=== PATIENT | female | born 1985 | race Caucasian/White ===

== ENCOUNTER 2023-11-14 13:17 | Outpatient (AMB) | payer OTHER, SELFPAY ==
--- NOTE | 2023-11-14 13:17 | A.OFFPC_ITS ---
Vital Signs 11/14/23 13:18 Height 5 ft 2.4 in Weight 211 lb 0.8 oz BMI 38.1 BP 126/70 Blood Pressure Location Lt brachial Position Sitting Pulse 78 Pulse Source Pulse Oximeter Oxygen Delivery Method Room Air Intake Visit Reasons: New patient- Establish Care Adjunct Instructor Required: No Allergies latex [LATEX] Adverse Reaction (Unknown, Verified 11/14/23 13:18) RASH Latex Allergy (Unknown, Uncoded 11/14/23 13:18) rash shellfish Allergy (Unknown, Uncoded 11/14/23 13:18) rash Medication List - Last Reconciled 11/14/23 by Camille Felipe MD cyanocobalamin (vitamin B-12) 1,000 mcg PO DAILY magnesium hydroxide mg PO multivitamin 1 tab PO DAILY omega 0-ukt-lkk-fish oil 60-90-500 mg (Fish Oil) 1 cap PO DAILY zinc gluconate 50 mg PO DAILY Tobacco use date assessed: 11/14/23 Dental Screening Dental Screen Date: 11/14/23 Did you have a dental visit in the last 12 months?: Yes Did you have a dental problem in the last 6 months where you did not have access to dental care?: No Was dental information given to patient?: Patient has dentist HPI New patient- Establish Care HPI Details 37-year-old obese female 1st time being seen. R hand and arm pain- no fall ot trauma- 6 months. [facility] Surgical History (Updated 11/14/23 @ 13:23 by Camille Felipe MD) History of bilateral tubal ligation Family History (Updated 11/14/23 @ 13:36 by Camille Felipe MD) Other Colon cancer Myocardial infarct Social History (Updated 11/14/23 @ 13:37 by Camille Felipe MD) Housing: House Alcohol intake: current Comment: once a month 2 glasses Patient Tobacco Use Status: Never used Tobacco Years Smoked: pot service: No Current occupational status: employed Cognitive needs: No Hearing needs: No Vision needs: No Questionnaire PHQ-9 Over the last 2 weeks, how often have you been bothered by any of the following problems? 1. Little interest or pleasure in doing things: not at all 2. Feeling down, depressed, or hopeless: not at all 3. Trouble falling or staying asleep, or sleeping too much: not at all 4. Feeling tired or having little energy: not at all 5. Poor appetite or overeating: not at all 6. Feeling bad about yourself - or that you are a failure or have let yourself or your family down: not at all 7. Trouble concentrating on things, such as reading the newspaper or watching television: not at all 8. Moving or speaking so slowly that other people could have noticed. Or the opposite - being so fidgety or restless that you have been moving around a lot more than usual: not at all 9. Thoughts that you would be better off or of hurting yourself in some way: not at all Total score: 0 Depression Screening Interpretation: Negative Depression Screening Done: Yes Source: Developed by Drs. Yan Babin, Kina Mckeon, Alexx Joseph and colleagues, with an educational stella from [employer]. Thrive Questionnaire Date Thrive assessed: 11/14/23 I am a: Patient What is your living situation today?: I have a steady place to live Within the past 12 months, did the food you bought not last and you didn't have the money to get more?: Never true Within the past 12 months, did you worry whether your food would run out before you got money to buy more?: Never true Do you have trouble paying for medicines?: No Do you have trouble getting transportation to medical appointments?: No Do you have trouble paying your heating and electricity bill?: No Do you have trouble taking care of your child, family member or friend?: No Do you have trouble with day-to-day activities such as bathing, preparing meals, shopping, managing finances, etc.?: No Are you currently unemployed and looking for a job?: No Are you interested in more education?: No THRIVE Score: 0 AUDIT C Alcohol Use Questionnaire (AUDIT-C) 1. How often do you have a drink containing alcohol?: Never 3. How often do you have six or more drinks on one occasion?: Never Total Score: 0 IVORY-7 AMB Questionnaire IVORY-7 Date IVORY - 7 assessed: 11/14/23 Feeling nervous, anxious, or on edge: 1 = Several days Not being able to stop or control worryin = Several days Worrying too much about different things: 0 = Not at all Trouble relaxin = Not at all Being so restless that it is hard to sit still: 0 = Not at all Becoming easily annoyed or irritable: 0 = Not at all Feeling afraid as if something awful might happen: 0 = Not at all Total IVORY-7 score (0-4 normal; 5-9 mild; 10-14 moderate; 15-21 severe): 2 Source: Developed by Drs. Yan Babin, Kina Mckeon, Alexx Joseph and colleagues, with an educational stella from [employer]. Physical exam (Primary Care) Vital Signs: Last Vital Signs Pulse 78 11/14/23 13:18 BP 126/70 11/14/23 13:18 Oxygen Delivery Method Room Air 11/14/23 13:18 BMI result Body Mass Index 38.1 Tobacco/Smoking Status: Tobacco use Status Tobacco use date assessed 11/14/23 11/14/23 13:19 Patient Tobacco Use Status Never used Tobacco 11/14/23 13:37 PHQ-9: PHQ-9 Score PHQ-9: Total score 0 11/14/23 13:59 Depression Screening Interpretation: Negative Thrive Assessment: Date of Thrive Assessment Date Thrive assessed 11/14/23 11/14/23 13:19 Const General: alert; No acute distress Eyes Conjunctivae: conjunctivae normal Resp Auscultation: clear to auscultation bilaterally Cardio Rate: regular rate Rhythm: regular rhythm GI Inspection: Yes normal to inspection Extrem General: Yes normal to inspection and No edema Office Procedures Flu Questionnaire Does the patient have a severe egg allergy?: No Does the patient have severe life threatening allergies?: No Does the patient have a fever or illness today?: No Has the patient ever had Guillain-[place] Syndrome?: No Has the patient ever had any past reaction to a flu shot?: No Immunizations flu vacc [id number] 6mos up(PF) 60 mcg(15 mcgx4)/0.5 mL IM syringe Performing Provider: Camille Felipe MD [facility] Administered by: EMMA Barajas on 11/14/23 14:00 Dose Route Admin Location Dispensed Lot Number Expiration Date NDC Latex Spooler 0.5 mL IM Left Deltoid 0.5 mL [id number] 04/19/24 [id number] [employer] VIS Given Date VIS Provided VIS Publication Date 11/14/23 Single Vaccine 21 Eligibility Eligibility Date Funding Source Not [facility] Eligible 11/14/23 Private Assessment and Plan Assessment & Plan (1) Obesity (BMI 30-39.9): Code(s): E66.9 - Obesity, unspecified (2) GERD (gastroesophageal reflux disease): Code(s): K21.9 - Gastro-esophageal reflux disease without esophagitis (3) Cervical cancer screening: Code(s): Z12.4 - Encounter for screening for malignant neoplasm of cervix (4) Lateral epicondylitis (tennis elbow): Code(s): M77.10 - Lateral epicondylitis, unspecified elbow Plan: heat and exercises recommended Orders: Orders Complete Blood Count Auto Diff Today K21.9 - Gastro-esophageal reflux disease without esophagitis Comprehensive Met. Panel Today K21.9 - Gastro-esophageal reflux disease without esophagitis Vitamin D 25-OH Total Today K21.9 - Gastro-esophageal reflux disease without esophagitis Influenza [id number] Immunization Today Z23 - Encounter for immunization Free T4 (Free Thyroxine) Today K21.9 - Gastro-esophageal reflux disease without esophagitis Thyroid Stimulating Hormone Today K21.9 - Gastro-esophageal reflux disease without esophagitis Lipid Panel Today E78.00 - Pure hypercholesterolemia, unspecified, K21.9 - Gastro-esophageal reflux disease without esophagitis Vitamin B12 and Folate Today K21.9 - Gastro-esophageal reflux disease without esophagitis Magnesium Today K21.9 - Gastro-esophageal reflux disease without esophagitis Referrals [facility] Referral Z12.4 - Encounter for screening for malignant neoplasm of cervix Medications: New semaglutide (Ozempic) for 4 weeks 0.25 mg (0.368 mL) subcut QWEEK 4 weeks 3 mL 1RF E66.9 - Obesity, unspecified Coding Level of Care Code New Pt Level 4 (58944) Diagnoses Obesity (BMI 30-39.9) E66.9 GERD (gastroesophageal reflux disease) K21.9 Cervical cancer screening Z12.4 Lateral epicondylitis (tennis elbow) M77.10
[2023-11-14 13:18] VITALS: BP 126/70; PULSE 78; BMI 38.1
== END 2023-11-14 14:06 | disposition home or self-care (01) ==
PROVIDERS: PCP Internal Medicine; Visit Provider Internal Medicine
DX: Z23 Encounter for immunization (principal); K21.9 Gastro-esophageal reflux disease without esophagitis; E66.9 Obesity, unspecified; Z68.38 Body mass index [BMI] 38.0-38.9, adult; M77.11 Lateral epicondylitis, right elbow
CPT/HCPCS: 90471; 90686; 99204

== ENCOUNTER 2024-09-02 15:25 | Outpatient (AMB) | payer OTHER, SELFPAY ==
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
[2024-09-02 15:45] VITALS: BP 130/72; PULSE 80; O2SAT 97; BMI 37.9
== END 2024-09-02 16:11 | disposition home or self-care (01) ==
PROVIDERS: PCP Internal Medicine; Visit Provider Internal Medicine
DX: S93.402A Sprain of unspecified ligament of left ankle, initial encounter (principal)

== ENCOUNTER → 2024-09-02 15:25 | Outpatient (BNVA) | payer OTHER, SELFPAY | PROVIDERS: PCP Internal Medicine; Visit Provider Internal Medicine ==

== ENCOUNTER 2024-09-02 16:17 | Outpatient (REF) | payer OTHER, SELFPAY | END 2024-09-02 16:18 | disposition home or self-care (01) | LOC: HO.XRAY 16:17 | PROVIDERS: PCP Internal Medicine; Visit Provider Internal Medicine | DX: S93.402A Sprain of unspecified ligament of left ankle, initial encounter (principal) | CPT/HCPCS: 73610 ==

== ENCOUNTER 2024-12-28 16:49 | Outpatient (AMB) | payer OTHER, SELFPAY ==
[2024-12-28 16:50] VITALS: BP 122/80; BMI 38.3
--- NOTE | 2024-12-28 16:50 | A.OFFPC_ITS ---
Vital Signs 12/28/24 16:50 Height 5 ft 2.4 in Weight 212 lb BMI 38.3 BP 122/80 Blood Pressure Location Lt brachial Position Sitting Intake Visit Reasons: Allergic reaction Manager Wireless Required: No Accompanied by: Self / Same As Patient Allergies latex [LATEX] Adverse Reaction (Unknown, Verified 12/28/24 16:52) RASH Latex Allergy (Unknown, Uncoded 09/02/24 16:47) rash shellfish Allergy (Unknown, Uncoded 09/02/24 16:47) rash Medication List - Last Reconciled 12/28/24 by Camille Felipe MD cyanocobalamin (vitamin B-12) 1,000 mcg PO DAILY magnesium hydroxide mg PO zinc gluconate 50 mg PO DAILY Tobacco use date assessed: 12/28/24 Dental Screening Dental Screen Date: 12/28/24 Did you have a dental visit in the last 12 months?: No Did you have a dental problem in the last 6 months where you did not have access to dental care?: No Was dental information given to patient?: Patient has dentist [facility] Surgical History History of bilateral tubal ligation Family History Other Colon cancer Myocardial infarct Social History Housing: House Alcohol intake: current Comment: once a month 2 glasses Patient Tobacco Use Status: Never used Tobacco Years Smoked: pot e-Cigarette/Vaping Use: Never Used Second Hand Smoke Exposure: No service: No Current occupational status: employed Current occupational exposures/hazards: No Cognitive needs: No Hearing needs: No Vision needs: No Questionnaire PHQ-9 Over the last 2 weeks, how often have you been bothered by any of the following problems? 1. Little interest or pleasure in doing things: not at all 2. Feeling down, depressed, or hopeless: not at all 3. Trouble falling or staying asleep, or sleeping too much: several days 4. Feeling tired or having little energy: not at all 5. Poor appetite or overeating: not at all 6. Feeling bad about yourself - or that you are a failure or have let yourself or your family down: not at all 7. Trouble concentrating on things, such as reading the newspaper or watching television: not at all 8. Moving or speaking so slowly that other people could have noticed. Or the opposite - being so fidgety or restless that you have been moving around a lot more than usual: nearly every day 9. Thoughts that you would be better off or of hurting yourself in some way: not at all Total score: 4 Source: Developed by Drs. Yan Babin, Kina Mckeon, Alexx Joseph and colleagues, with an educational stella from [employer]. Thrive Questionnaire Date Thrive assessed: 12/28/24 I am a: Patient What is your living situation today?: I have a steady place to live Within the past 12 months, did the food you bought not last and you didn't have the money to get more?: Never true Within the past 12 months, did you worry whether your food would run out before you got money to buy more?: Never true Do you have trouble paying for medicines?: No Do you have trouble getting transportation to medical appointments?: No Do you have trouble paying your heating and electricity bill?: No Do you have trouble taking care of your child, family member or friend?: No Do you have trouble with day-to-day activities such as bathing, preparing meals, shopping, managing finances, etc.?: No Are you currently unemployed and looking for a job?: No Are you interested in more education?: No Please select the resources that you would like help with: None Currently or been in a relationship where the following occur: No concerns reported THRIVE Score: 0 AUDIT C Alcohol Use Questionnaire (AUDIT-C) 1. How often do you have a drink containing alcohol?: Never Total Score: 0 IVORY-7 AMB Questionnaire IVORY-7 Date IVORY - 7 assessed: 12/28/24 Feeling nervous, anxious, or on edge: 3 = Nearly every day Not being able to stop or control worryin = Not at all Worrying too much about different things: 2 = More than half the days Trouble relaxin = More than half the days Being so restless that it is hard to sit still: 1 = Several days Becoming easily annoyed or irritable: 0 = Not at all Feeling afraid as if something awful might happen: 0 = Not at all Total IVORY-7 score (0-4 normal; 5-9 mild; 10-14 moderate; 15-21 severe): 8 Source: Developed by Drs. Yan Babin, Kina Mckeon, Alexx Joseph and colleagues, with an educational stella from [employer]. Physical exam (Primary Care) Vital Signs: Last Vital Signs BP 122/80 12/28/24 16:50 BMI result Body Mass Index 38.3 Tobacco/Smoking Status: Tobacco use Status Tobacco use date assessed 12/28/24 12/28/24 16:56 Patient Tobacco Use Status Never used Tobacco 12/28/24 16:56 e-Cigarette/Vaping Use Never Used 12/28/24 16:56 PHQ-9: PHQ-9 Score PHQ-9: Total score 4 12/28/24 17:04 Thrive Assessment: Date of Thrive Assessment Date Thrive assessed 12/28/24 12/28/24 16:56 Currently or been in a relationship where the following occur: No concerns reported Const General: alert; No acute distress Eyes Conjunctivae: conjunctivae normal Resp Auscultation: clear to auscultation bilaterally Cardio Rate: regular rate Rhythm: regular rhythm GI Inspection: Yes normal to inspection Extrem General: Yes normal to inspection and No edema Coding Level of Care Code Est Pt Level 4 (90876) Diagnoses Obesity (BMI 30-39.9) E66.9 GERD (gastroesophageal reflux disease) K21.9 Lateral epicondylitis (tennis elbow) M77.10 Pruritus L29.9 Assessment & Plan Assessment & Plan (1) Obesity (BMI 30-39.9): Code(s): E66.9 - Obesity, unspecified Category: Medical Plan: Diet and exercise (2) GERD (gastroesophageal reflux disease): Code(s): K21.9 - Gastro-esophageal reflux disease without esophagitis Category: Medical Plan: Avoid the foods that causes that usually spicy foods, tomato products, juices, coffee, soda and foods that your sensitive to. After eating do not lie down, allow 3-4 hours before in lie down. And keep the head of bed above 30 degrees to avoid the acid from going up. (3) Lateral epicondylitis (tennis elbow): Code(s): M77.10 - Lateral epicondylitis, unspecified elbow Category: Medical Plan: resolvied (4) Pruritus: Code(s): L29.9 - Pruritus, unspecified Category: Medical Plan History of Present Illness The patient is a 39-year-old female presenting with persistent pruritus. She describes the itchiness as chronic and generalized, having started approximately one month prior, with no accompanying rash. The patient has tried various methods for relief, including specific shampoos and skincare products, colder showers, and dietary adjustments, without significant improvement. The intensity of itching has led to mental distress and breakdowns. Additionally, she reports pruritus exacerbating during nighttime, impacting her sleep. The patient has a history of obesity influencing her joint health, notably causing discomfort in her ankles, related to an inferior calcaneal spur with associated osteoarthritis. Past management strategies included diet modifications, although insurance challenges have affected her access to specific weight-loss medications such as Ozempic. 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 Health Maintenance - Dietary management: cessation of meat and alcohol consumption. - Reflux management plan with dietary measures. - Current medications include [id number] supplements: B12, magnesium, and zinc. - Recommended non-sedative antihistamines: Claritin or Arlyn. - Allergy medication: hydroxyzine for nighttime itch relief. Social History - Employment: Operates a daycare. - Weight management: Actively pursuing through dietary changes and cessation of alcohol. - Self-care adjustments: Reduces use of fragranced products. Review of Systems - General: Reports persistent itching without rash. - Respiratory: Denies recent/upcoming respiratory issues explicitly but mentions wearing masks due to exposure risk (COVID, flu). Physical Exam Results - Previous lab results include normal electrolytes, kidney function, blood sugar, and liver function. - Hepatitis C antibody nonreactive, varicella antibody positive, hepatitis B negative, measles antibody positive. - X-ray of left ankle indicated an inferior calcaneal spur with no fracture. Plan The pruritus will be managed with non-sedative antihistamines, considering Sung gra as preferable for efficacy, while hydroxyzine can be used at night. Continued monitoring and coordination for obtaining Wegovy for obesity and weight-related symptoms is crucial. Lifestyle modifications including dietary changes will support GERD and lateral epicondylitis management. An emphasis was placed on weight management for osteoarthritis relief through supportive footwear. Ongoing allergy management strategies were advised to further control pruritus without work interference. Patient was informed and verbally consented to the use of an ambient scribe for clinic note documentation during this visit. Discussion Notes I reviewed the patient's symptoms thoroughly and explained that pruritus management could include both daytime non-sedative antihistamines and nighttime hydroxyzine to alleviate symptoms. The importance of weight management was discussed in the context of osteoarthritis and its impact on joint health; treatment with Wegovy is being pursued pending insurance approval. I advised lifestyle modifications, including continued dietary changes for weight loss and GERD support, as well as rest, ice, compression, and elevation (R.I.C.E.) methods to alleviate symptoms from lateral epicondylitis. We also discussed preventative health measures for her work environment, especially with the risk of respiratory infections, reiterating the importance of personal protective equipment in such settings. I confirmed awareness of additional allergy medication options and plans for allergy testing if symptoms persist. Patient Instructions - Take non-sedative antihistamines such as Arlyn or Claritin daily and hydroxyzine at night for itch relief. - Continue dietary changes and cessation of alcohol to assist with weight management and GERD. - Wear supportive footwear to alleviate stress on joints. - Follow up with a referral to seek approval for Wegovy for weight management. - Utilize protective measures against COVID-19 and other respiratory infections, such as wearing a mask in indoor settings. - Contact me if symptoms worsen or if there are issues with medications or side effects. Orders: Orders Complete Blood Count Auto Diff Today L29.9 - Pruritus, unspecified Thyroid Stimulating Hormone Today L29.9 - Pruritus, unspecified UA CC w/rflx Micro + Cult Today L29.9 - Pruritus, unspecified, R30.0 - Dysuria Lipid Panel Today E78.00 - Pure hypercholesterolemia, unspecified, L29.9 - Pruritus, unspecified Comprehensive Met. Panel Today L29.9 - Pruritus, unspecified Free T4 (Free Thyroxine) Today L29.9 - Pruritus, unspecified Vitamin B12 and Folate Today L29.9 - Pruritus, unspecified Hemoglobin A1c Today L29.9 - Pruritus, unspecified Vitamin D 25-OH Total Today L29.9 - Pruritus, unspecified Referrals Allergy & Immunology Referral L29.9 - Pruritus, unspecified Medications: New hydroxyzine HCl 25 mg PO TID PRN 60 tabs 0RF itching L29.9 - Pruritus, unspecified semaglutide (weight loss) (Max) administer weeks 1 through 4 of therapy 0.25 mg (0.5 mL) subcut QWEEK 2 mL 1RF E66.9 - Obesity, unspecified
== END 2024-12-28 17:19 | disposition home or self-care (01) ==
PROVIDERS: PCP Internal Medicine; Visit Provider Internal Medicine
DX: K21.9 Gastro-esophageal reflux disease without esophagitis (principal); M77.10 Lateral epicondylitis, unspecified elbow; E66.9 Obesity, unspecified; Z68.38 Body mass index [BMI] 38.0-38.9, adult; L29.9 Pruritus, unspecified

== ENCOUNTER 2025-02-19 14:53 | Outpatient (AMB) | payer OTHER, SELFPAY ==
--- NOTE | 2025-02-19 15:02 | MHC.PC.OV ---
Vital Signs 02/19/25 15:04 Height 5 ft 2.4 in Weight 215 lb 2 oz BMI 38.8 BP 130/72 Blood Pressure Location Lt brachial Position Sitting Pulse 86 Pulse Source Pulse Oximeter Temp 97.5 F Temp Source Temporal Artery Scan Pulse Oximetry (%) 96 Oxygen Delivery Method Room Air Intake Visit Reasons: bump between R breast and shoulder Intake Note: Patient is here to follow up on Bump between right breast and shoulder. Cylinder Head Assembler Required: No Mold Presser: Not Required per policy Accompanied by: Self / Same As Patient Allergies latex [LATEX] Adverse Reaction (Unknown, Verified 02/19/25 15:03) RASH shellfish Allergy (Unknown, Uncoded 02/19/25 15:03) rash Medication List - Last Reconciled 02/19/25 by Camille Felipe MD cephalexin 500 mg PO BID 7 days cyanocobalamin (vitamin B-12) 1,000 mcg PO DAILY hydroxyzine HCl 25 mg PO TID PRN magnesium hydroxide mg PO semaglutide (weight loss) (Wegovy) 0.25 mg (0.5 mL) subcut QWEEK zinc gluconate 50 mg PO DAILY Tobacco use date assessed: 02/19/25 Dental Screening Dental Screen Date: 12/28/24 [facility] Surgical History History of bilateral tubal ligation Family History Other Colon cancer Myocardial infarct Social History Housing: House Alcohol intake: current Comment: once a month 2 glasses Patient Tobacco Use Status: Never used Tobacco Years Smoked: pot e-Cigarette/Vaping Use: Never Used Second Hand Smoke Exposure: No service: No Current occupational status: employed Current occupational exposures/hazards: No Cognitive needs: No Hearing needs: No Vision needs: No Questionnaire PHQ-9 Over the last 2 weeks, how often have you been bothered by any of the following problems? 1. Little interest or pleasure in doing things: not at all 2. Feeling down, depressed, or hopeless: not at all 3. Trouble falling or staying asleep, or sleeping too much: several days 4. Feeling tired or having little energy: nearly every day 5. Poor appetite or overeating: several days 6. Feeling bad about yourself - or that you are a failure or have let yourself or your family down: not at all 7. Trouble concentrating on things, such as reading the newspaper or watching television: more than half the days 8. Moving or speaking so slowly that other people could have noticed. Or the opposite - being so fidgety or restless that you have been moving around a lot more than usual: several days 9. Thoughts that you would be better off or of hurting yourself in some way: not at all Total score: 8 Depression Screening Interpretation: Positive Depression Screening Done: Yes Source: Developed by Drs. Yan Babin, Knia Mckeon, Alexx Joseph and colleagues, with an educational stella from [employer]. Thrive Questionnaire Date Thrive assessed: 12/28/24 I am a: Patient What is your living situation today?: I have a steady place to live Within the past 12 months, did the food you bought not last and you didn't have the money to get more?: Never true Within the past 12 months, did you worry whether your food would run out before you got money to buy more?: Never true Do you have trouble paying for medicines?: No Do you have trouble getting transportation to medical appointments?: No Do you have trouble paying your heating and electricity bill?: No Do you have trouble taking care of your child, family member or friend?: No Do you have trouble with day-to-day activities such as bathing, preparing meals, shopping, managing finances, etc.?: No Are you currently unemployed and looking for a job?: No Are you interested in more education?: No Please select the resources that you would like help with: None Currently or been in a relationship where the following occur: No concerns reported THRIVE Score: 0 AUDIT C Alcohol Use Questionnaire (AUDIT-C) 1. How often do you have a drink containing alcohol?: Monthly or less 2. How many drinks containing alcohol do you have on a typical day when you are drinking?: 1 or 2 3. How often do you have six or more drinks on one occasion?: Never Total Score: 1 IVORY-7 AMB Questionnaire IVORY-7 Date IVORY - 7 assessed: 12/28/24 Feeling nervous, anxious, or on edge: 1 = Several days Not being able to stop or control worryin = Not at all Worrying too much about different things: 1 = Several days Trouble relaxin = Several days Being so restless that it is hard to sit still: 1 = Several days Becoming easily annoyed or irritable: 0 = Not at all Feeling afraid as if something awful might happen: 0 = Not at all Total IVORY-7 score (0-4 normal; 5-9 mild; 10-14 moderate; 15-21 severe): 4 Source: Developed by Drs. Yan Babin, Kina Mckeon, Alexx Joseph and colleagues, with an educational stella from [employer]. Physical exam (Primary Care) Vital Signs: Last Vital Signs Temp 97.5 F 02/19/25 15:04 Pulse 86 02/19/25 15:04 BP 130/72 02/19/25 15:04 Pulse Ox 96 02/19/25 15:04 Oxygen Delivery Method Room Air 02/19/25 15:04 BMI result Body Mass Index 38.8 Tobacco/Smoking Status: Tobacco use Status Tobacco use date assessed 12/28/24 02/19/25 15:04 Patient Tobacco Use Status Never used Tobacco 02/19/25 15:04 e-Cigarette/Vaping Use Never Used 02/19/25 15:04 PHQ-9: PHQ-9 Score PHQ-9: Total score 8 02/19/25 15:38 Depression Screening Interpretation: Positive Thrive Assessment: Date of Thrive Assessment Date Thrive assessed 12/28/24 02/19/25 15:04 Currently or been in a relationship where the following occur: No concerns reported Const General: alert; No acute distress Eyes Conjunctivae: conjunctivae normal Neck Neck images: 1. 2 cm round mass R shoulder erythematous and tender Resp Auscultation: clear to auscultation bilaterally Cardio Rate: regular rate Rhythm: regular rhythm GI Inspection: Yes normal to inspection Extrem General: Yes normal to inspection and No edema Coding Level of Care Code Est Pt Level 4 (07305) Diagnoses Pruritus L29.9 Obesity (BMI 30-39.9) E66.9 GERD (gastroesophageal reflux disease) K21.9 Infected cyst of skin L72.9; L08.9 Assessment & Plan Assessment & Plan (1) Pruritus: Code(s): L29.9 - Pruritus, unspecified Category: Medical Plan: Patient has seen Allergy and immunology and Xyzal, and workup was recommended. Patient has not had a chest x-ray. (2) Obesity (BMI 30-39.9): Code(s): E66.9 - Obesity, unspecified Category: Medical Plan: Diet and exercise. Wegovy prescription sent in to see if insurance would cover. (3) GERD (gastroesophageal reflux disease): Code(s): K21.9 - Gastro-esophageal reflux disease without esophagitis Category: Medical Plan: Avoid the foods that causes that usually spicy foods, tomato products, juices, coffee, soda and foods that your sensitive to. After eating do not lie down, allow 3-4 hours before in lie down. And keep the head of bed above 30 degrees to avoid the acid from going up. (4) Infected cyst of skin: Comment: R shoulder Code(s): L72.9 - Follicular cyst of the skin and subcutaneous tissue, unspecified; L08.9 - Local infection of the skin and subcutaneous tissue, unspecified Category: Medical Plan History of Present Illness The patient is a 39-year-old female presenting with an infected epidermal cyst. Initially noted to be a benign swelling, the lesion gradually increased in size and became painful. It is described as red, painful, and warm to touch, indicating infection. The patient has not observed any direct cause for the cyst?s irritation. The patient reports a history of seeing an clerical production worker for pruritus, using Cizal and Arlyn, with previous hydroxyzine being discontinued in favor of topical treatments alongside proton pump inhibitors for GERD management. The onset of the infection was recent, with palpable tenderness and ache during the examination. Health Maintenance - Adherence to proton pump inhibitors for GERD management. - Attempted weight management through prescribed medications, with insurance-related obstacles. Social History - Mention of challenges with health insurance coverage impacting prescription access. - The patient references weight management as an ongoing concern. Review of Systems - Dermatological: Reports painful, red, warm lump indicative of an infected cyst. - Respiratory: Reports a persistent cough and raspy voice for several months. - Allergic/Immunological: Reports pruritus, seen by an clerical production worker and treated with Cizal and Arlyn. Physical Exam - Skin- Presence of an infected epidermal cyst, described as red, warm, and tender. Results - Labs: Patient underwent blood work; results not discussed. - Imaging: Pending chest X-ray due to a persistent cough and raspy voice. Plan The infected epidermal cyst requires antibiotic treatment, for which cefalexin has been prescribed due to the patient's intolerance to amoxicillin. If the infection does not resolve, surgical removal might be considered. Continued use of moisturizers and steroid creams is advised for managing pruritus. GERD will continue to be managed with proton pump inhibitors. The patient is encouraged to pursue weight management strategies, including exploring possible medications through insurance adjustments. Patient was informed and verbally consented to the use of an ambient scribe for clinic note documentation during this visit. Discussion Notes I discussed with the patient the nature and possible causes of the infected cyst and highlighted the infection risks if left untreated. I recommended cefalexin, considering the patient's allergic reactions to other antibiotics, and warned of potential risks including secondary yeast infections. Follow-up is predicated on symptom improvement or persistence of infection, with surgical intervention as a possibility. We reviewed the ongoing management of pruritus and GERD. Addressed were attempts to overcome insurance barriers to appropriate weight management medication, emphasizing the importance of weight loss in managing GERD and overall health. Ensured understanding of referral for imaging and pharmacy details for prescriptions. Patient Instructions - Take cefalexin as prescribed and complete the full course. - Use topical moisturizers and steroid creams for skin pruritus as needed. - Continue proton pump inhibitors for GERD management. - Monitor the cyst for signs of improvement or worsening; return if no improvement. - Pursue imaging for a chronic cough and raspy voice. - Address weight management with medication pending insurance approval. - Return in three weeks if there is no progress with the current weight management plan. Orders: Orders XR chest 2V Today L29.9 - Pruritus, unspecified Medications: New cephalexin 500 mg PO BID 14 tabs 0RF 7 days L08.9 - Local infection of the skin and subcutaneous tissue, unspecified, L72.9 - Follicular cyst of the skin and subcutaneous tissue, unspecified semaglutide (weight loss) (Max) administer weeks 1 through 4 of therapy 0.25 mg (0.5 mL) subcut QWEEK 2 mL 1RF E66.9 - Obesity, unspecified
[2025-02-19 15:04] VITALS: BP 130/72; PULSE 86; TEMP 36.4; O2SAT 96; BMI 38.8
== END 2025-02-19 15:55 | disposition home or self-care (01) ==
LOC: HO.HMCH 14:54
PROVIDERS: PCP Internal Medicine; Visit Provider Internal Medicine
DX: L29.9 Pruritus, unspecified (principal); E66.9 Obesity, unspecified; Z68.38 Body mass index [BMI] 38.0-38.9, adult; K21.9 Gastro-esophageal reflux disease without esophagitis; L72.9 Follicular cyst of the skin and subcutaneous tissue, unspecified; L08.9 Local infection of the skin and subcutaneous tissue, unspecified

== ENCOUNTER → 2025-02-19 14:53 | Outpatient (BNVA) | payer OTHER, SELFPAY | PROVIDERS: PCP Internal Medicine; Visit Provider Internal Medicine | DX: Z13.89 Encounter for screening for other disorder (principal) ==

== ENCOUNTER 2025-03-05 15:51 | Outpatient (AMB) | payer OTHER, SELFPAY ==
--- NOTE | 2025-03-05 15:51 | MHC.PC.OV ---
Vital Signs 03/05/25 15:52 Height 5 ft 2.4 in Weight 214 lb 2 oz BMI 38.7 BP 140/74 H Blood Pressure Location Lt brachial Position Sitting Pulse 87 Pulse Source Pulse Oximeter Temp 97.3 F Temp Source Temporal Artery Scan Pulse Oximetry (%) 97 Oxygen Delivery Method Room Air Intake Visit Reasons: Right shoulder infected cyst Intake Note: Patient is here to follow up on Right shoulder infection . Emerging Solutions Executive Required: No Dramatic Arts Historian: Present Accompanied by: Children Allergies latex [LATEX] Adverse Reaction (Unknown, Verified 03/05/25 15:52) RASH shellfish Allergy (Unknown, Uncoded 03/05/25 15:52) rash Medication List - Last Reconciled 03/05/25 by Annalee Coleman PA-C cyanocobalamin (vitamin B-12) 1,000 mcg PO DAILY hydroxyzine HCl 25 mg PO TID PRN magnesium hydroxide mg PO semaglutide (weight loss) (Wegovy) 0.25 mg (0.5 mL) subcut QWEEK zinc gluconate 50 mg PO DAILY Tobacco use date assessed: 03/05/25 Dental Screening Dental Screen Date: 12/28/24 HPI Right shoulder infected cyst HPI Details 39-year-old female with past medical history of obesity and GERD last seen 02/[address] Felipe coming in for acute problem. Presenting with shoulder pain and cyst under the arm. Reports developing recurring cysts under the arm, with a total of five accumulating previously. No surgical interventions have been required historically. Patient continues to have painful cyst on the anterior aspect of the right shoulder did complete course of Keflex with significant improvement. She does still continue to have tenderness and redness. COUNT INCLUDES [facility] Surgical History History of bilateral tubal ligation Family History Other Colon cancer Myocardial infarct Social History Housing: House Alcohol intake: current Comment: once a month 2 glasses Patient Tobacco Use Status: Never used Tobacco Years Smoked: pot e-Cigarette/Vaping Use: Never Used Second Hand Smoke Exposure: No service: No Current occupational status: employed Current occupational exposures/hazards: No Cognitive needs: No Hearing needs: No Vision needs: No Questionnaire Thrive Questionnaire Date Thrive assessed: 12/28/24 IVORY-7 AMB Questionnaire IVORY-7 Date IVORY - 7 assessed: 12/28/24 Source: Developed by Drs. Yan Babin, Kina Mckeon, Alexx Joseph and colleagues, with an educational stella from [employer]. Review of Systems Const Denies body aches, Denies chills and Denies fever(s) Eyes Reports no additional complaints ENT Reports no additional complaints Card Denies chest pain and Denies dyspnea Resp Denies dyspnea Musc Reports as per HPI Skin/Breast Reports system reviewed and no additional complaints, except as documented Physical exam (Primary Care) Tobacco/Smoking Status: Tobacco use Status Tobacco use date assessed 12/28/24 02/19/25 15:04 Patient Tobacco Use Status Never used Tobacco 02/19/25 15:04 e-Cigarette/Vaping Use Never Used 02/19/25 15:04 Thrive Assessment: Date of Thrive Assessment Date Thrive assessed 02/19/25 03/05/25 15:51 Const General: cooperative, healthy appearing, comfortable and no acute distress Orientation/consciousness: patient oriented x3 Eyes General: appearance normal, both eyes and all related structures Conjunctivae: conjunctivae normal Neck Neck: Yes full ROM and Yes no lymphadenopathy Resp Effort & Inspection: normal respiratory effort Auscultation: clear to auscultation bilaterally, no crackles, no rales, no rhonchi and no wheezes Cardio Rate: regular rate Rhythm: regular rhythm GI Abdomen image: 1. Soft tender mass with surrounding erythema Skin General skin exam: no rashes or lesions noted Neuro General: patient oriented x3 Gait exam (Neuro): Normal gait present Psych Affect: normal affect Attitude: cooperative Insight: Good insight present (Psych) Judgement: Good judgement present (Psych) Coding Level of Care Code Est Pt Level 3 (87527) Diagnoses Infected cyst of skin L72.9; L08.9 Assessment & Plan Assessment & Plan (1) Infected cyst of skin: Comment: R shoulder Code(s): L72.9 - Follicular cyst of the skin and subcutaneous tissue, unspecified; L08.9 - Local infection of the skin and subcutaneous tissue, unspecified Category: Medical Plan: Patient continues to have infected cyst of the right shoulder. I propose an antibiotic course to address the ongoing inflammation of the right shoulder consistent with infection. The necessity of surgery is to be evaluated post-treatment response, potentially requiring general surgical consultation for the cyst. Preemptive lifestyle modifications, such as avoiding irritants and wearing protective clothing when exposed to sunlight, were emphasized. Suggested adjunctive probiotic management to preserve gut microbiota integrity during antibiotic therapy, emphasizing consumption with meals to lessen digestive disturbances. Pending resolution, further systemic monitoring via blood tests might be requested. Plan This note was constructed using voice recognition software. While every effort has been made to ensure accuracy and sign language instructor, still areas may have been included sometimes these areas may affect the content or meeting of the given symptoms. Total time spent caring for the patient today was 20 minutes. This includes time spent before the visit reviewing the chart, time spent during the visit, and time spent after the visit and documentation. Patient was informed and verbally consented to the use of an ambient scribe for clinic note documentation during this visit. Orders: Referrals General Surgery Referral L08.9 - Local infection of the skin and subcutaneous tissue, unspecified, L72.9 - Follicular cyst of the skin and subcutaneous tissue, unspecified Medications: New doxycycline hyclate 100 mg PO BID 14 tabs 0RF
[2025-03-05 15:52] VITALS: BP 140/74; PULSE 87; TEMP 36.3; O2SAT 97; BMI 38.7
== END 2025-03-05 16:12 | disposition home or self-care (01) ==
PROVIDERS: PCP Internal Medicine
DX: L72.9 Follicular cyst of the skin and subcutaneous tissue, unspecified (principal); L08.9 Local infection of the skin and subcutaneous tissue, unspecified

== ENCOUNTER → 2025-03-05 15:51 | Outpatient (BNVA) | payer OTHER, SELFPAY | PROVIDERS: PCP Internal Medicine ==

== ENCOUNTER 2025-03-19 16:08 | Outpatient (AMB) | payer OTHER, SELFPAY ==
[2025-03-19 16:12] VITALS: BP 118/72; PULSE 95; TEMP 36.7; O2SAT 98; BMI 39.2
--- NOTE | 2025-03-19 16:12 | AM.OFFWIN_ITS ---
Intake Vital Signs 03/19/25 16:12 Height 5 ft 2.4 in Weight 217 lb 2 oz BMI 39.2 BP 118/72 Blood Pressure Location Lt brachial Position Sitting Pulse 95 Pulse Source Pulse Oximeter Temp 98.1 F Temp Source Oral Pulse Oximetry (%) 98 Oxygen Delivery Method Room Air Intake Visit Reasons: EP heart fluttering/squeezed, rt neck/lt arm pain Intake Note: Pt presents to the office today for tight chest symptoms and right sided neck and arm pain that radiated to her left side. Patient Tobacco Use Status: Never used Tobacco Allergies latex [LATEX] Adverse Reaction (Unknown, Verified 03/19/25 16:15) RASH shellfish Allergy (Unknown, Uncoded 03/19/25 16:15) rash HPI HPI Comments History of Present Illness Details History of Present Illness - The patient is a 39-year-old female pr esenting with acute chest pain experienced at 4:00 AM, initially right-sided, radiating to the shoulder, arm, and neck, then moving to the left side of her chest and then radiating to her shoulder arm and neck. - Associated symptoms included nausea, w ith no vomiting - she denies any episodes of sweating, d izziness or lightheadedness. - Relief was achieved after taking two 8 1mg aspirin, with a reduction in chest pressure and pain allowing her to sleep. - No vomiting, or pain radiating to the stomach or back was noted. - No significant personal or family hist ory of cardiac issues was reported, aside from the mother experiencing heart palpitations. Physical Exam General: Cooperative, healthy appearing, comfortable, no acute distress and well developed Orientation: Patient oriented x3 Limitations: No limitations Head: Normal to inspection Ears: Hearing grossly normal bilaterally Nose: Normal External nose present Face and sinus: Normal facial exam Eyes: Appearance normal, both eyes and all related structures Neck: Normal visual inspection and Yes full ROM Respiratory: Normal respiratory effort and able to speak in complete sentences. Clear to auscultation bilaterally Cardiovascular: Regular rate and rhythm. Normal S1 and S2 Skin: No rashes or lesions noted Neuro: Patient oriented x3 Extremities: Normal to inspection [facility] Surgical History History of bilateral tubal ligation Family History Other Colon cancer Myocardial infarct Social History Housing: House Alcohol intake: current Comment: once a month 2 glasses Patient Tobacco Use Status: Never used Tobacco Years Smoked: pot e-Cigarette/Vaping Use: Never Used Second Hand Smoke Exposure: No service: No Current occupational status: employed Current occupational exposures/hazards: No Cognitive needs: No Hearing needs: No Vision needs: No Review of Systems Const All systems reviewed & are unremarkable except as noted in HPI and below Physical Exam Vital Signs: Last Vital Signs Temp 98.1 F 03/19/25 16:12 Pulse 95 03/19/25 16:12 BP 118/72 03/19/25 16:12 Pulse Ox 98 03/19/25 16:12 Oxygen Delivery Method Room Air 03/19/25 16:12 BMI result Body Mass Index 39.2 Assessment & Plan Assessment & Plan (1) Chest pain: Code(s): R07.9 - Chest pain, unspecified Qualifiers: Chest pain type: unspecified Qualified Code(s): R07.9 - Chest pain, unspecified Plan: An electrocardiogram (EKG) was performed to assess the patient's cardiac function due to the previous chest pain episode. It was clarified that while the current presentation did not warrant emergency referral, she should seek immediate medical attention if symptoms reoccur. The potential for baseline abnormalities in the EKG without previous data for comparison was acknowledged. The patient was advised of the importance of vigilance for any future symptom recurrence and to obtain care expeditiously if needed. EKG shows normal sinus rhythm at 79 beats per minute, no acute changes noted. Recommended patient monitor herself for symptoms and should her chest pain return, it is imperative that she either call 911 or have someone drive her to the closest emergency department to have cardiac issues ruled out. As she is currently not symptomatic her vital signs are stable and she is well-appearing with a normal EKG, there is no indication for emergency evaluation right now. Patient was informed and verbally consented to the use of an ambient scribe for clinic note documentation during this visit. Orders: Orders AMB EKG-In Office Today R07.9 - Chest pain, unspecified Coding Level of Care Code Est Pt Level 4 (90060) Diagnoses Chest pain, unspecified type R07.9 Chest pain type: unspecified
== END 2025-03-19 16:38 | disposition home or self-care (01) ==
PROVIDERS: PCP Internal Medicine; Visit Provider Physician Assistant
DX: R07.9 Chest pain, unspecified (principal)

== ENCOUNTER → 2025-03-19 16:08 | Outpatient (BNVA) | payer OTHER, SELFPAY | PROVIDERS: PCP Internal Medicine; Visit Provider Physician Assistant | DX: R07.9 Chest pain, unspecified (principal) | CPT/HCPCS: 93005 ==

== ENCOUNTER 2025-04-15 10:05 | Outpatient (AMB) | payer OTHER, SELFPAY ==
--- NOTE | 2025-04-15 10:18 | A.OFFVIS_ITS ---
Vital Signs 3 04/15/25 10:27 Height 5 ft 2 in Weight 217 lb BMI 39.7 BP 123/73 Blood Pressure Location Lt brachial Position Sitting Pulse 67 Intake Visit Reasons: Follicular cyst of the skin subcutaneous Intake Note: Patient is seen in office for evaluation of a cyst. Pt c/o: onset 10 yrs, above the right breast, at time gets swollen, red and painful, denies discharge, or other concerns, is prone to boils around the axilla and bikini line, has change soaps with relief Medical Translator Required: No Accompanied by: Self / Same As Patient Allergies latex (LATEX) Adverse Reaction (Unknown, Verified 04/15/25 10:26) RASH shellfish Allergy (Unknown, Uncoded 04/15/25 10:26) rash Medication List - Last Reconciled 04/15/25 by John Mckeon MD aspirin (Adult Aspirin Regimen) 81 mg PO DAILY cyanocobalamin (vitamin B-12) 1,000 mcg PO DAILY doxycycline hyclate 100 mg PO BID levocetirizine (Xyzal) 5 mg PO 2XW magnesium hydroxide mg PO zinc gluconate 50 mg PO DAILY HPI Comments Details: 39-year-old female patient presenting with a enlarging skin cyst located over the right axilla which has been present for least 10 years. The cyst remained fairly small for many years however recently became more enlarged and painful. She was treated with antibiotics and subsequently noted the assisted decrease in size with decreased pain. She continues to feel a small nodule but denies any ongoing symptoms. She denies a history of discharge from the site and never underwent surgical procedures in this location. She is requesting excision of this symptomatic epidermal inclusion cyst. [facility] Surgical History History of bilateral tubal ligation Family History Other Colon cancer Myocardial infarct Social History Housing: House Alcohol intake: current Comment: once a month 2 glasses Patient Tobacco Use Status: Never used Tobacco Years Smoked: pot e-Cigarette/Vaping Use: Never Used Second Hand Smoke Exposure: No service: No Current occupational status: employed Current occupational exposures/hazards: No Cognitive needs: No Hearing needs: No Vision needs: No Review of Systems Const All systems reviewed & are unremarkable except as noted in HPI and below Physical Exam Vital Signs: Last Vital Signs Pulse 67 04/15/25 10:27 BP 123/73 04/15/25 10:27 BMI result Body Mass Index 39.7 Const General: cooperative and no acute distress Nutritional Appearance: well nourished Orientation/consciousness: patient oriented x3 Limitations: no limitations HEENT Head: Yes normocephalic and Yes atraumatic Ears: hearing grossly normal bilaterally Chest Other: Right anterior axilla is noted a 1 cm subcutaneous nodule with a central punctum suggestive of an epidermal inclusion cyst. There is no tenderness or fluctuance to palpation. Chest/axillae images: 2 1. Site of palpable cyst, 1 cm diameter. Resp Effort & Inspection: normal respiratory effort, no audible wheezes, no cough and no respiratory distress Cardio Jugular venous distension: no JVD GI Inspection: Yes normal to inspection Skin Other: Warm, dry, no rash Neuro General: patient oriented x3 Extrem General: Yes no clubbing, cyanosis or edema Assessment & Plan Assessment & Plan (1) Infected cyst of skin: Comment: R shoulder Code(s): L72.9 - Follicular cyst of the skin and subcutaneous tissue, unspecified; L08.9 - Local infection of the skin and subcutaneous tissue, unspecified Category: Medical Plan 39-year-old female patient presenting with a symptomatic epidermal inclusion cyst of the right axilla which was recently infected but improved after a course of antibiotics. Recommended excision of the cyst as an office procedure under local. After discussion of the procedure, risks, and alternatives, she consents to the surgery. Coding Level of Care Code New Pt Level 4 (34912) Diagnoses Infected cyst of skin L72.9; L08.9
[2025-04-15 10:27] VITALS: BP 123/73; PULSE 67; BMI 39.7
== END 2025-04-15 10:35 | disposition home or self-care (01) ==
LOC: HO.HGS 10:06
PROVIDERS: PCP Internal Medicine; Visit Provider Surgery
DX: L72.9 Follicular cyst of the skin and subcutaneous tissue, unspecified (principal); L08.9 Local infection of the skin and subcutaneous tissue, unspecified
CPT/HCPCS: 99204

== ENCOUNTER 2025-05-23 18:15 | Emergency (ER) | payer OTHER, SELFPAY ==
--- NOTE | ~2025-05-23 | XR_ITS ---
CLINICAL HISTORY: chest pain 2 view chest x-ray Comparison: None provided Findings: No consolidation or effusion. Possible tiny calcified granulomas in the lungs. Prominent cardiac silhouette. No acute fracture. IMPRESSION: 1. No acute findings. This document has been electronically signed by: Mickey Peters MD on 05/23/2025 18:52:55
--- NOTE | 2025-05-23 18:17 | ECG_ITS ---
Test Reason : CP Blood Pressure : */* mmHG Vent. Rate : 74 BPM Atrial Rate : 74 BPM P-R Int : 166 ms QRS Dur : 86 ms QT Int : 368 ms P-R-T Axes : 51 27 24 degrees QTcB Int : 408 ms Normal sinus rhythm with sinus arrhythmia Possible Left atrial enlargement Borderline ECG No previous ECGs available Referred By: Pia Green Electronically Signed By: MICHELLE JONES
[2025-05-23 18:31] VITALS: BP 139/79; PULSE 69; RESP 18; TEMP 36.6; O2SAT 98; BMI 38.4
--- NOTE | 2025-05-23 18:31 | ED.CHESTPAIN ---
HPI - Chest Pain General Chief Complaint: Chest Pain Stated Complaint: burning in chest; heart feels like it's clenched Time Seen by Provider: 05/23/25 18:50 Source: patient and family (Spouse) Mode of arrival: ambulatory Limitations: no limitations History of Present Illness ED Provider: DR. Mackey HPI narrative: A 39-year-old female walked into the emergency department for evaluation of mid chest pain started around 15:00 while she with school shopping for her kids, patient describes the pain as in mid chest as clenching/squeezing sensation in her mid chest with out radiation of the pain to her left shoulder or or her neck, patient felt dizzy for short period of time without sweating or LOC, no SOB with the chest pain, no known history of heart disease, no chest trauma or injury. Patient traveled yesterday to a beach in [place] about 3 [address] complain of no lower extremity swelling or tenderness, no history of DVT, no history of pulmonary embolism. No cough, no fever, no chills. Related Data Home Medications ?Medication ?Instructions ?Recorded ?Confirmed cyanocobalamin (vitamin B-12) 1,000 mcg PO DAILY 11/14/23 04/15/25 1,000 mcg capsule magnesium hydroxide 600 mg mg PO 11/14/23 04/15/25 chewable tablet zinc gluconate 50 mg tablet 50 mg PO DAILY 11/14/23 04/15/25 aspirin 81 mg tablet,delayed 81 mg PO DAILY 03/19/25 04/15/25 release (Adult Aspirin Regimen) levocetirizine 5 mg tablet (Xyzal) 5 mg PO 2XW 03/19/25 04/15/25 Previous Rx's ?Medication ?Instructions ?Recorded doxycycline hyclate 100 mg tablet 100 mg PO BID #14 tabs 03/05/25 Allergies Allergy/AdvReac Type Severity Reaction Status Date / Time latex (LATEX) AdvReac Unknown RASH Verified 05/23/25 18:32 shellfish Allergy Unknown rash Uncoded 05/23/25 18:32 Review of Systems Review of Systems: All other systems are reviewed and are negative Constitutional: Reports as per HPI and Reports no additional constitutional complaints Eyes: Reports as per HPI and Reports no additional eye complaints Reports system reviewed and no additional complaints, except as documented Cardiovascular: Reports as per HPI and Reports no additional cardiovascular complaints Respiratory: Reports as per HPI and Reports no additional respiratory complaints Gastrointestinal: Reports as per HPI and Reports no additional gastrointestinal complaints Genitourinary: Reports no additional female genitourinary complaints Musculoskeletal: Reports no additional musculoskeletal complaints Skin/Breast: Reports system reviewed and no additional complaints, except as docu Psychiatric: Reports no additional psychiatric complaints Endocrine: Reports no additional endocrine complaints Hematologic/Lymphatic: Reports no additional hematologic/lymphatic complaints Allergic/Immunologic: Reports no additional allergic/immunologic complaints Reports system reviewed and no additional complaints, except as documented and Reports Abnormal speech present [facility] Past Medical History Surgical History History of bilateral tubal ligation Family History Family History Other Colon cancer Myocardial infarct Social History Social History Housing: House Alcohol intake: current Comment: once a month 2 glasses Patient Tobacco Use Status: Never used Tobacco Years Smoked: pot e-Cigarette/Vaping Use: Never Used Second Hand Smoke Exposure: No Advance Directives: No Advance Directives Information Provided: Yes Do you have a plan to hurt others: No Plan service: No Current occupational status: employed Current occupational exposures/hazards: No Cognitive needs: No Hearing needs: No Vision needs: No Physical Exam Vital Signs: Vital Signs: Last Vital Signs Temp 98.0 F 05/23/25 22:03 Pulse 62 05/23/25 22:03 Resp 15 05/23/25 22:03 BP 125/76 05/23/25 22:03 Pulse Ox 98 05/23/25 22:03 O2 Del Method Room Air 05/23/25 22:03 BMI result Body Mass Index 38.4 Vital signs have been reviewed and appear to be correct. Blood pressure elevated. Heart rate normal. Respiratory rate normal. Temperature normal. Oxygen saturation normal. Appearance: Alert. Oriented X3. No acute distress. Head: Normal external exam. Normocephalic. Atraumatic. No Marcus signs noted. No raccoon eyes noted Eyes: PERRLA. EOMI. Conjunctiva and sclera normal. Eyelids normal. ENT: TM's Normal. Pharynx normal. Uvula midline. Moist mucous membranes. No trismus noted. No drooling noted. No muffled voice noted. Neck: Normal inspection. Neck supple. FROM. No adenopathy. Thyroid Normal. No meningeal signs. No neck mass noted. CVS: Normal heart rate and rhythm. Heart sound normal. No murmurs noted. Pulses normal throughout. Respiratory: No respiratory distress. Painless inspiration. Breath sounds normal. No wheezes/rales/rhonchi noted. Mid chest reproducible point of tenderness, step-off deformity. No accessory muscle usage noted or decreased air movement noted. Abdomen: Soft and nontender. Bowel sounds normal in all 4 quadrants. No distention noted. No organomegaly noted. No visible injury noted. Back: No CVA tenderness. Full range of motion noted. Skin: Skin warm and dry. Normal skin color. Normal skin turgor. No rashes/lesions/lacerations noted. Extremities: No lower extremity edema. Extremities exhibit normal range of motion. Extremities nontender. Neuro: Oriented X 3. Cranial nerve exam: II-XII are grossly intact No motor deficit. No sensory deficit. Reflexes normal. Course Course Course Narrative: This is an RME performed by Steven Green CONTINUING EDUCATION DEAN: Additional HPI, ROS, PE not included below will be deferred to primary provider. Patient is a 39-year-old female presents emergency department for evaluation expressing concern for chest pain over the past few hours described as ?my heart is being clenched described as a squeezing sensation. [place] over the mid/right anterior chest. She reports a history of this happening a few months ago, she took low-dose aspirin and presented to urgent care the following day, was advised that in the future should she have symptoms like this she should presents emergency department promptly for evaluation. Thus she has done so today. She did take a low-dose aspirin prior to arrival. Plan: Serum labs, ECG, CXR Reevaluation(s) Reevaluation #1: 39-year-old female came in with tightness in the chest that is remain constant for 3 hours, negative troponin x2, EKG is normal sinus rhythm at 74 beats per minutes, no ST-T changes, negative D-dimer with risk of pulmonary embolism or DVT. Exam revealed point of reproducible tenderness over the sternum. Time: 22:42 Medical Decision Making Differential Diagnosis Differential Diagnoses: The differential diagnosis associated with the presentation includes (Costochondritis, pulmonary embolism, ACS, chest wall pain, pneumonia, pneumothorax, pleural effusion, severe anemia.) Admission/Observation Consideration of admission/observation: Escalation of care including admission/observation considered Lab Data MDM Lab Attestation statement: I reviewed the patient's lab results. 05/23/25 19:16 05/23/25 19:16 Labs: Lab Results 05/23/25 05/23/25 Range/Units 19:16 22:02 WBC 9.9 (4.8-10.8) X10*3/uL RBC 4.36 (4.20-5.50) X10*6/uL Hgb 13.7 (12.0-16.0) g/dl Hct 38.7 (37.0-47.0) % MCV 88.8 (80.0-98.0) fL MCH 31.4 (27.0-33.0) pg MCHC 35.4 H (31.0-35.0) g/dl RDW 12.3 (11.0-16.0) % Plt Count 379 (160-400) X10*3/uL MPV 9.8 (9.4-12.3) fL Immature Gran % (Auto) 0.3 (0.0-0.4) % Neut % (Auto) 54.6 (45-73) % Lymph % (Auto) 34.1 (20-40) % Mcleod % (Auto) 5.2 (2-11) % Eos % (Auto) 5.1 H (0-4) % Baso % (Auto) 0.7 (0-2) % Lymph # (Auto) 3.4 (1.2-4.9) X10*3/uL Mcleod # (Auto) 0.5 (0.1-1.2) X10*3/uL Eos # (Auto) 0.5 H (0.0-0.4) X10*3/uL Baso # (Auto) 0.1 (0.0-0.2) X10*3/uL Abs Immat Gran (auto) 0.03 (0.00-0.03) X10*3/uL Absolute Neuts (auto) 5.4 (2.0-8.3) x10*3/uL Absolute Nucleated RBC 0.000 (0.0-0.012) X10*3/uL Nucleated RBC % (auto) 0.0 (0.0-0.2) /100WBC D-Dimer High Sensitivty < 150 NG/ML Sodium 140 (135-145) mmol/L Potassium 3.7 (3.3-5.1) mmol/L Chloride 106 (96-108) mmol/L Carbon Dioxide 26 (22-29) mmol/L Anion Gap 12 (12-20) BUN 11 (9-16) mg/dL Creatinine 0.68 (0.5-1.4) mg/dL Estim Creat Clear Calc 120.7 Estimated GFR > 60 Random Glucose 98 (60-115) mg/dL Calcium 9.2 (8.4-10.2) mg/dL Total Bilirubin 0.2 (0.0-1.0) mg/dL AST 25 (5-31) U/L ALT 24 (0-31) U/L Alkaline Phosphatase 79 (39-117) U/L Troponin I High Sens 3.0 3.3 (<3.5-17.0) ng/L Total Protein 6.7 (6.5-8.0) g/dL Albumin 4.0 (3.5-5.0) g/dL Independent Interpretation I performed an independent interpretation of an: EKG (Normal sinus rhythm at 74 beats per minutes, normal axis deviation, normal intervals, no ST-T changes, no change from prior EKG.) and Plain X-Ray (Chest: No acute intrathoracic pathology.) Radiology Impression Discussion of test interpretation with radiology: I have reviewed the radiologist's reading. Discharge Plan Discharge Clinical Impression: Chest wall tenderness Patient Disposition: Home, Self-Care Instructions: Chest Wall Pain (ED) Prescriptions: No Action magnesium hydroxide 600 mg tablet,chewable PO zinc gluconate 50 mg tablet 50 mg PO DAILY cyanocobalamin (vitamin B-12) 1,000 mcg capsule 1,000 mcg PO DAILY doxycycline hyclate 100 mg tablet 100 mg PO BID Qty: 14 0RF levocetirizine [Xyzal] 5 mg tablet 5 mg PO 2XW aspirin [Adult Aspirin Regimen] 81 mg tablet,delayed release (DR/EC) 81 mg PO DAILY Referrals: Po,Camille Salguero MD [Primary Care Provider, Internal Medicine] Print Language: Montenegrin
[2025-05-23 19:20] LABS: MANUAL DIFF FLAG NO
[2025-05-23 19:21] LABS: Hematocrit 38.7 % (37.0-47.0); Hemoglobin 13.7 g/dl (12.0-16.0); Imm Gran Abs Auto 0.03 X10*3/uL (0.00-0.03); Imm Gran Pct Auto 0.3 % (0.0-0.4); Lymphocytes Absolute Auto 3.4 X10*3/uL (1.2-4.9); Mean Corpuscular HGB Conc 35.4 g/dl (31.0-35.0); Mean Corpuscular Hemoglobin 31.4 pg (27.0-33.0); Mean Corpuscular Volume 88.8 fL (80.0-98.0); NRBC Abs Auto 0.000 X10*3/uL (0.0-0.012); NRBC Pct Auto 0.0 /100WBC (0.0-0.2); Platelet Count 379 X10*3/uL (160-400); Red Blood Count 4.36 X10*6/uL (4.20-5.50); White Blood Count 9.9 X10*3/uL (4.8-10.8)
[2025-05-23 19:30] LABS: D Dimer High Sensitivity < 150 NG/ML
[2025-05-23 19:35] LABS: Alanine Aminotransferase 24 U/L (0-31); Albumin Level 4.0 g/dL (3.5-5.0); Alkaline Phosphatase 79 U/L (39-117); Anion Gap 12 (12-20); Aspartate Amino Transferase 25 U/L (5-31); Blood Urea Nitrogen 11 mg/dL (9-16); Calcium 9.2 mg/dL (8.4-10.2); Carbon Dioxide 26 mmol/L (22-29); Chloride 106 mmol/L (96-108); Creatinine Clr Calc Pharmacy 120.7; Estimated Glomerular Filt Rate > 60; Potassium 3.7 mmol/L (3.3-5.1); Sodium 140 mmol/L (135-145); Total Protein 6.7 g/dL (6.5-8.0)
--- NOTE | 2025-05-23 19:37 | PC.NURSE ---
pt advised results for blood work pending. Pt resting comfortably with visitor at bedside.
[2025-05-23 19:41] LABS: Troponin-I High Sensitivity 3.0 ng/L (<3.5-17.0)
[2025-05-23 22:03] VITALS: BP 125/76; PULSE 62; RESP 15; TEMP 36.7; O2SAT 98
--- NOTE | 2025-05-23 22:05 | PC.NURSE ---
repeat labs obtained at this time, vss, pt offers no complaints
[2025-05-23 22:29] LABS: Troponin-I High Sensitivity 3.3 ng/L (<3.5-17.0)
[2025-05-23 22:58] VITALS: BP 125/76; PULSE 62; RESP 15; TEMP 36.7; O2SAT 98
== END 2025-05-24 02:29 | disposition home or self-care (01) ==
PROVIDERS: Nurse Practitioner Family; Emergency Provider Emergency Medicine; PCP Internal Medicine
DX: R07.89 Other chest pain (principal)
CPT/HCPCS: 36415; 71046; 80053; 84484; 85025; 85379; 93005; 99283; 99285

== ENCOUNTER → 2025-05-23 18:17 | Outpatient (BNV) | payer OTHER, SELFPAY | PROVIDERS: Emergency Provider Emergency Medicine; PCP Internal Medicine; Visit Provider Internal Medicine | DX: R07.89 Other chest pain (principal) | CPT/HCPCS: 93010 ==

== ENCOUNTER → 2025-05-23 18:34 | Outpatient (BNV) | payer OTHER, SELFPAY | PROVIDERS: Emergency Provider Emergency Medicine; Visit Provider Radiology Diagnostic Radiology | DX: R07.9 Chest pain, unspecified (principal) | CPT/HCPCS: 71046 ==